=== PATIENT | female | born 1960 | race Caucasian/White ===

== ENCOUNTER 2016-08-13 20:03 | Observation (INO) | payer MEDICARE, BC ==
[2016-08-13 20:33] LABS: URINE MUCUS NONE SEEN (Up to 25%)
[2016-08-13 20:45] LABS: URINE APPEARANCE CLOUDY; URINE COLOR YELLOW; URINE LEUKOCYTE ESTERASE 75 WBC/uL (2+) (NEGATIVE); URINE NITRITE NEGATIVE (NEGATIVE); URINE SPECIFIC GRAVITY 1.015 (0.001-1.035)
[2016-08-13 20:46] LABS: URINE BILIRUBIN NEGATIVE (NEGATIVE); URINE BLOOD 50 Ery/uL (2+) (NEGATIVE); URINE GLUCOSE NORMAL (NEGATIVE); URINE KETONE NEGATIVE (NEGATIVE); URINE PROTEIN 30mg/dL (1+) (NEG - TRACE); URINE SQUAMOUS EPITHELIAL CELL 0-5/hpf (<= 15/hpf); URINE UROBILINOGEN NORMAL (NEG-1mg/dL)
[2016-08-13 20:57] LABS: BASOPHIL# 0.5 X 10^3uL (0.0-0.1); BASOPHILS 4.3 % (0.0-2.0); EOSINOPHILS 0.3 % (0.0-6.0); HEMATOCRIT 38.4 % (36.0-48.0); HEMOGLOBIN 12.9 g/dL (12.0-16.0); LYMPHOCYTES 11.4 % (20.0-40.0); LYMPHOCYTES# 1.4 X 10^3uL (0.8-3.8); MEAN CELL VOLUME 93.6 fL (80.0-100.0); MEAN CORPUS. HGB CONCENTRATION 33.7 g/dL (32.0-36.0); MEAN CORPUSCULAR HEMOGLOBIN 31.5 pg (29.0-35.0); MEAN PLATELET VOLUME 8.1 fL (7.4-10.4); MONOCYTES# 1.4 X 10^3uL (0.2-1.0); NEUTROPHILS# 9.2 X 10^3uL (2.6-6.7); PLATELET COUNT 324 X 10^3uL (130-440); RED CELL DISTRIBUTION WIDTH 12.8 % (11.5-14.5); WHITE BLOOD COUNT 12.6 X 10^3uL (3.9-10.7)
[2016-08-13] MEDS ORDERED: ONDANSETRON HCL 4 MG/2 ML VIAL ONE (20:57)
[2016-08-13] MEDS ORDERED: HYDROmorphone HCL 1 MG/ML SYR ONE ×2 (20:57→21:37)
[2016-08-13] MEDS ORDERED: LEVOFLOXACIN/D5W 100 ML IV ONE (20:58)
[2016-08-13] MEDS ORDERED: NORMAL SALINE 1,000 ML IV ONE (20:58)
[2016-08-13 21:07] LABS: BLOOD UREA NITROGEN 8 mg/dL (7-17); CALCIUM 9.1 mg/dL (8.4-10.2); CHLORIDE 98 mmol/L (98-107); CREATININE 0.7 mg/dL (0.5-1.0); EST GLOMERULAR FILTRATION RATE > 60 mL/min; GLUCOSE 96 mg/dL (70-100); POTASSIUM 4.2 mmol/L (3.5-5.1); SODIUM 136 mmol/L (137-145)
[2016-08-13] MEDS ORDERED: HOME MEDICATION LIST NEEDED 1 EA EACH MISC ONE (21:26)
[2016-08-13] MEDS ORDERED: NORMAL SALINE 1,000 ML IV SCH (22:00)
--- NOTE | 2016-08-13 22:04 | ER NURSING DOCUMENTATION ---
Nurse's Notes [facility] Name:Yudith Montano Age:56 yrs Sex:Female :1960 Arrival Date:08/13/2016 Time:20:03 Bed4 Private MD:Vick Harrington Diagnosis:Pyelonephritis;Abdominal Pain, Left Upper Quadrant Presentation: 08/13 20:11 Acuity: SHEILA 3 rh 20:11 Presenting complaint: Patient states: I started with a strange feeling in my lower left mk2 back on Thursday." Pt also complains of dysuria, frequency, LLQ abdominal pain with possible fevers at home. Pt afebrile in E.D with no medication on board. Transition of care: Home. Notified ED Physician of Dr. Obando notified. Care prior to arrival: None. 20:11 Method Of Arrival: Walk In [facility] Triage Assessment: 20:14 General: Appears in no apparent distress, Behavior is cooperative, pleasant. Pain: mk2 Complains of pain in left low back and RLQ Pain currently is 8 out of 10 on a pain scale. Pain began 2-3 days ago. Neuro: No deficits noted. Cardiovascular: Heart tones S1 S2. Respiratory: Breath sounds are clear bilaterally. GI: Reports lower abdominal pain. : Reports pain with urination urgency urinary frequency hematuria. Historical: - Allergies: PENICILLINS; - Home Meds: 1. remicade 2. Percocet Oral - PMHx: CHRONIC PAIN; Pneumonia; UTI; ARTHRITIS; OSTEOARTHRITIS; ankylosing spondylitis; H/O immunosuppressive therapy; - PSHx: BACK SURGERY; 3 BACK FUSION; Appendectomy; - Tetanus: < 10 years. - Ebola Screening: : Patient negative for fever greater than or equal to 101.5 degrees Fahrenheit, and additional compatible Ebola Virus Disease symptoms. - Immunization history: Flu Vaccine None. - Social history: Smoking status: Patient states former smoker of tobacco. Screenin:13 Infectious Disease Risk None. Abuse screen: Denies threats or abuse. Denies injuries rh from another. Nutritional screening: No deficits noted. Assessment: 20:16 See Triage Assessment done by same RN. mk2 22:00 GI: Bowel sounds present X 4 quads. Abd is soft. mk2 Vital Signs: 20:07 BP 150 / 95 (auto/); mk2 20:13 BP 150 / 95; Pulse 96; Resp 16; Temp 98.6; Pulse Ox 82% on R/A; Weight 53.52 kg; Height rh 5 ft. 5 in. (165.10 cm); Pain 8/10; 20:21 BP 155 / 95 (auto/); mk2 20:37 Pulse Ox 96% ; mk2 20:57 Pulse Ox 93% ; mk2 21:19 Pain 6/10; mk2 21:58 BP 141 / 64; Pulse 89; Resp 13; Pulse Ox 92% on 2 lpm NC; Pain 5/10; mk2 20:13 Body Mass Index 19.63 (53.52 kg, 165.10 cm) rh ED Course: 20:06 Patient arrived in ED. ma1 20:06 Vick Harrington MD is Private Physician. ma1 20:11 Melinda Espinoza is Primary Nurse. rh 20:11 Triage completed. rh 20:13 Valuables Remains with patient Patient has correct armband on for positive rh identification. Placed in gown. Bed in low position. Call light in reach. Side rails up X 1. 20:16 Urine collected. Clean catch specimen. mk2 20:27 Warm blanket given. mk2 20:39 Des Obando MD is Attending Physician. cd 20:43 Primary Nurse role handed off by Melinda Espinoza mk2 20:43 Brigida Finn, RN is Primary Nurse. mk2 20:59 Inserted peripheral IV: 20 gauge in left antecubital area and blood collected. Oxygen mk2 Oxygen administration via nasal cannula @ 2L/min. 21:33 Pt ambulates to bed with steady gait. Oxygen drops to 79 on RA. is aware. PT states mk2 she is typically has low oxygen in [place]. Pt is aao. 21:38 Cleo Cooper MD is Admitting Physician. cd Administered Medications: 20:44 Drug: NS 0.9% 1000 ml; Route: IV; Rate: bolus; Site: left antecubital; mk2 22:00 Follow up: IV Status: Completed infusion; IV Intake: 1000ml mk2 20:45 Drug: Dilaudid 0.5 mg; Route: IVP; Site: left antecubital; mk2 20:58 Follow up: Response: No change in condition mk2 20:45 Drug: levofloxacin 500 mg; Route: IVPB; Site: left antecubital; mk2 22:00 Follow up: IV Status: Completed infusion; IV Intake: 100ml mk2 20:45 Drug: Zofran 4 mg; Route: IVP; Infused Over: 2 mins; Site: left antecubital; mk2 21:19 Follow up: Response: Nausea is decreased mk2 20:58 Drug: Dilaudid 0.5 mg; Route: IVP; Site: left antecubital; mk2 21:19 Follow up: Response: Pain is decreased mk2 21:32 Drug: Dilaudid 1 mg; Route: IVP; Site: left antecubital; mk2 21:36 Follow up: Response: Pain is decreased mk2 Point of Care Testing: Urine Dip: 20:27 pH: 7.0; ; Specific [place]: 1.010; Ketones: Negative; Glucose: Negative; Protein: 1 mk2 mg/dL; Leukocytes: 2 Leuko/?L; Nitrite: Negative ; Blood: 3 Alek/?L; Bilirubin: Negative ; Urobilinogen: Normal Intake: 22:00 IV: 1000ml; Total: 1000ml. mk2 22:00 IV: 100ml; Total: 1100ml. mk2 Outcome: 21:40 Decision to Admit by Provider. cd 21:59 Admitted to Med/surg accompanied by nurse, via stretcher, with oxygen. mk2 21:59 Condition: stable 21:59 Report given to Kyrie Schimtz 21:59 Instructed on need to admit 22:03 Patient left the ED. 2 Signatures: Des Obando MD MD cd Kruger, Meg, RN RN david2 Melinda Espinoza Melissa orShabbir
--- NOTE | 2016-08-13 22:04 | ER PHYSICIAN DOCUMENTATION ---
Physician Documentation [facility] Name:Yudith Montano Age:56 yrs Sex:Female :1960 Arrival Date:08/13/2016 Time:20:03 Bed4 Private MD:Vick Harrington ED, Chris Disposition: 08/13/16 21:40 Admit ordered for Cleo Cooper. Preliminary diagnosis are Pyelonephritis, Abdominal Pain, Left Upper Quadrant. - Bed requested for Medical/Surgical. - Condition is Fair. - Problem is new. - Symptoms have improved. 23 HR OBS Yes HPI: 08/13 20:30 This 56 yrs old Female presents to ER via Walk In with complaints of cd Abdominal Pain. 20:30 The patient presents with abdominal pain in the left upper quadrant, and left flank and cd Left lower back. Onset: The symptoms/episode began/occurred gradually, 2 day(s) ago. The symptoms radiate to left back. Associated signs and symptoms: Pertinent positives: anorexia, dysuria, nausea, frequency with urination, Pertinent negatives: blood in stools, diarrhea, fever, vomiting blood. The symptoms are described as constant, steady. Severity of pain: At its worst the pain was severe a 8 / 10 in the emergency department the pain is unchanged. Historical: - Allergies: PENICILLINS; - Home Meds: 1. remicade 2. Percocet Oral - PMHx: CHRONIC PAIN; Pneumonia; UTI; ARTHRITIS; OSTEOARTHRITIS; ankylosing spondylitis; H/O immunosuppressive therapy; - PSHx: BACK SURGERY; 3 BACK FUSION; Appendectomy; - Tetanus: < 10 years. - Ebola Screening: : Patient negative for fever greater than or equal to 101.5 degrees Fahrenheit, and additional compatible Ebola Virus Disease symptoms. - Immunization history: Flu Vaccine None. - Social history: Smoking status: Patient states former smoker of tobacco. ROS: 21:07 ENT: Negative for injury, pain, epistaxis and discharge. cd Cardiovascular: Negative for chest pain, palpitations, edema and pleuritic pain. Respiratory: Negative for shortness of breath, dyspnea on exertion, cough, sputum production, wheezing, hemoptysis and pleuritic chest pain. MS/Extremity: Negative for injury, deformity, edema, calf tenderness, pain or coldness. Skin: Negative for injury, rash, itching and discoloration. 21:07 Neuro: Negative for headache, weakness, numbness, tingling, and seizure. cd 21:07 Constitutional: Positive for poor PO intake, Negative for chills, fever. 21:07 Abdomen/GI: Positive for abdominal pain, nausea, anorexia, Negative for vomiting, diarrhea, abdominal distension, hematemesis, black/tarry stool, rectal bleeding. 21:07 Back: Positive for pain at rest. 21:07 : Positive for urinary symptoms, flank pain, urinary frequency, burning with urination. 21:08 All other systems are negative. cd Exam: 21:08 ENT: Nares patent. No nasal discharge, no septal abnormalities noted. Tympanic cd membranes are normal and external auditory canals are clear. Oropharynx with no redness, swelling, or masses, exudates, or evidence of obstruction, uvula midline. Mucous membranes moist. Skin: Warm, dry with normal turgor. Normal color with no rashes, no lesions, and no evidence of cellulitis. 21:08 MS/ Extremity: Pulses equal, no cyanosis. Neurovascular intact. Full, normal range of motion. 21:08 Constitutional: The patient appears alert, awake, non-diaphoretic, non-toxic, well developed, well nourished, anxious, in obvious distress, moderately distressed. 21:08 Cardiovascular: Rate: normal, Rhythm: regular, Pulses: no pulse deficits are appreciated, Heart sounds: normal. 21:08 Respiratory: the patient does not display signs of respiratory distress, Respirations: normal, no acute changes, Breath sounds: are normal, clear throughout. 21:08 Abdomen/GI: Palpation: moderate abdominal tenderness, in the left upper quadrant, rebound tenderness, is not appreciated, voluntary guarding, is not appreciated, involuntary guarding, is not appreciated, no appreciated organomegaly, Indicators: Matute's sign is negative. 21:08 Back: CVA tenderness, that is moderate, is noted on the left. 21:08 : Bladder: distension, is not appreciated, tenderness, is not appreciated, Rectal exam: is not applicable. Vital Signs: 20:07 BP 150 / 95 (auto/); mk2 20:13 BP 150 / 95; Pulse 96; Resp 16; Temp 98.6; Pulse Ox 82% on R/A; Weight 53.52 kg; Height rh 5 ft. 5 in. (165.10 cm); Pain 8/10; 20:21 BP 155 / 95 (auto/); mk2 20:37 Pulse Ox 96% ; mk2 20:57 Pulse Ox 93% ; mk2 21:19 Pain 6/10; mk2 21:58 BP 141 / 64; Pulse 89; Resp 13; Pulse Ox 92% on 2 lpm NC; Pain 5/10; mk2 20:13 Body Mass Index 19.63 (53.52 kg, 165.10 cm) rh MDM: 20:30 Data interpreted: Pulse oximetry: on room air is 85 %. Interpretation: hypoxia. Plan: cd O2 by [place] applied. 20:39 Patient medically screened. cd 21:13 Differential diagnosis: diverticulitis, Pyelonephritis, urinary tract infection. 21:15 Data reviewed: vital signs, nurses notes, lab test result(s), CBC, electrolytes, cd urinalysis, and as a result, I will admit patient, administer antibiotics Levaquin, administer IV fluids, NS bolus. 21:30 Physician consultation: Cleo Cooper MD was called at 21:25, was contacted at cd 21:25, regarding admission, to the floor, consult, patient's condition, and will see patient in inpatient room, tomorrow. 21:37 Counseling: I had a detailed discussion with the patient and/or guardian regarding: the cd historical points, exam findings, and any diagnostic results supporting the discharge/admit diagnosis, lab results, the need for further work-up and treatment in the hospital, risk of leaving the Emergency Department, without completed treatment. 21:37 Admission orders: after a detailed discussion of the patient's condition and case, the admit orders are written by me. 08/13 20:47 Order name: UA W/ MICRO -CULTURE IF IND; Complete Time: 21:13 EDMS 04 21:13 Interpretation: Normal Except: URINE APPEARANCE CLOUDY; URINE LEUKOCYTE ESTERASE 75 cd WBC/uL (2+); URINE RBC 5-10/hpf; URINE WBC >100/hpf; URINE BACTERIA 10-20 ORGANISMS/hpf; UTI. 08/13 21:07 Order name: CBC AUTO DIF, MDIF/RMOR IF IND; Complete Time: 21:13 EDMS 08/13 21:13 Interpretation: Normal Except: WHITE BLOOD COUNT 12.6; NEUTROPHILS 73.0; Elevated WBC. 08/13 21:08 Order name: BASIC METABOLIC PANEL; Complete Time: 21:13 EDMS 08/13 21:13 Interpretation: Normal. 08/13 20:14 Order name: Urine Dip; Complete Time: 20:26 rh Dispensed Medications: 20:44 Drug: NS 0.9% 1000 ml; Route: IV; Rate: bolus; Site: left antecubital; mk2 22:00 Follow up: IV Status: Completed infusion; IV Intake: 1000ml mk2 20:45 Drug: Dilaudid 0.5 mg; Route: IVP; Site: left antecubital; mk2 20:58 Follow up: Response: No change in condition mk2 20:45 Drug: levofloxacin 500 mg; Route: IVPB; Site: left antecubital; mk2 22:00 Follow up: IV Status: Completed infusion; IV Intake: 100ml mk2 20:45 Drug: Zofran 4 mg; Route: IVP; Infused Over: 2 mins; Site: left antecubital; mk2 21:19 Follow up: Response: Nausea is decreased mk2 20:58 Drug: Dilaudid 0.5 mg; Route: IVP; Site: left antecubital; mk2 21:19 Follow up: Response: Pain is decreased mk2 21:32 Drug: Dilaudid 1 mg; Route: IVP; Site: left antecubital; mk2 21:36 Follow up: Response: Pain is decreased mk2 Point of Care Testing: Urine Dip: 20:27 pH: 7.0; ; Specific [place]: 1.010; Ketones: Negative; Glucose: Negative; Protein: 1 mk2 mg/dL; Leukocytes: 2 Leuko/?L; Nitrite: Negative ; Blood: 3 Alek/?L; Bilirubin: Negative ; Urobilinogen: Normal Signatures: Des Obando MD MD cd Kruger, Meg, RN RN [facility] Melinda Espinoza
[2016-08-13] MEDS: HYDROmorphone HCL 1 MG/ML SYR IV PRN (22:53)
[2016-08-13] MEDS: KETOROLAC TROMETHAMINE 30 MG/ML VIAL IV PRN (22:58)
[2016-08-14] MEDS: HYDROmorphone HCL 1 MG/ML SYR IV PRN ×4 (03:06→14:25)
[2016-08-14] MEDS: KETOROLAC TROMETHAMINE 30 MG/ML VIAL IV PRN ×3 (03:07→14:25)
[2016-08-14] MEDS ORDERED: O2 HUMIDIFIER 650 ML BOTTLE INHALATION ONE (03:35)
[2016-08-14 05:53] LABS: BASOPHILS 0.4 % (0.0-2.0); EOSINOPHILS 0.9 % (0.0-6.0); EOSINOPHILS# 0.1 X 10^3uL (0.0-0.4); HEMATOCRIT 30.4 % (36.0-48.0); HEMOGLOBIN 10.2 g/dL (12.0-16.0); LYMPHOCYTES 16.7 % (20.0-40.0); LYMPHOCYTES# 1.4 X 10^3uL (0.8-3.8); MEAN CELL VOLUME 93.7 fL (80.0-100.0); MEAN CORPUS. HGB CONCENTRATION 33.7 g/dL (32.0-36.0); MEAN CORPUSCULAR HEMOGLOBIN 31.6 pg (29.0-35.0); MONOCYTES 10.9 % (2.0-10.0); MONOCYTES# 0.9 X 10^3uL (0.2-1.0); NEUTROPHILS 71.1 % (54.0-75.0); NEUTROPHILS# 6.1 X 10^3uL (2.6-6.7); PLATELET COUNT 254 X 10^3uL (130-440); RED BLOOD COUNT 3.24 X 10^6uL (4.20-6.10); RED CELL DISTRIBUTION WIDTH 12.1 % (11.5-14.5); WHITE BLOOD COUNT 8.5 X 10^3uL (3.9-10.7)
[2016-08-14 06:07] LABS: BLOOD UREA NITROGEN 6 mg/dL (7-17); CALCIUM 7.9 mg/dL (8.4-10.2); CHLORIDE 102 mmol/L (98-107); CREATININE 0.6 mg/dL (0.5-1.0); EST GLOMERULAR FILTRATION RATE > 60 mL/min; GLUCOSE 90 mg/dL (70-100); POTASSIUM 3.7 mmol/L (3.5-5.1); SODIUM 135 mmol/L (137-145)
[2016-08-14 11:41] VITALS: BP 113/74; PULSE 63; RESP 16; TEMP 98; O2SAT 92
--- NOTE | 2016-08-14 16:33 | HISTORY & PHYSICAL ---
DATE OF ADMISSION: 08/13/16 DATE OF DISCHARGE: 08/14/16 DIAGNOSES 1. Left pyelonephritis. 2. Acute gastroenteritis. 3. Ankylosing spondylitis with associated chronic pain syndrome. HISTORY OF PRESENT ILLNESS: This is a 56-year-old female with ankylosing spondylitis, who was [place] for 3 weeks and [facility] for 5 weeks. She just returns to [place] and was to see her pain specialist Dr. Fisher for Remicade infusion and refill of pain medications. However, she presented to the ER with a 2-day history of left flank pain and left lower quadrant abdominal pain with associated dysuria, urinary frequency and urinary hesitancy. No urgency. In addition, this morning she developed some watery nonfoul, nonbloody diarrhea times 2 with some associated nausea. No fever, chills, vomiting, constipation, melena, hematochezia or vaginal discharge. She is having some left lower quadrant abdominal pain although not as severe today as yesterday. At this time she was able to keep p.o. fluids and solids down and she is urinating better compared to yesterday. ALLERGIES: Penicillin. MEDICATIONS Remicade infusion q.6 weeks. Percocet 10/325 mg one tablet p.o. q.i.d. PAST MEDICAL HISTORY 1. Ankylosing spondylitis. 2. Osteoarthritis. 3. Psoriatic arthritis. 4. Chronic pain syndrome post 5 lumbar back surgeries. 5. Umbilical hernia repair in 2010. 6. Appendectomy. SOCIAL HISTORY: one child. Disabled. Quit smoking in 2007. Drinks socially. FAMILY HISTORY: Father with diabetes, hypertension and cancer. REVIEW OF SYSTEMS: No lung, kidney, liver, diabetes, thyroid, seizures, peptic ulcer disease, hyperlipidemia, skin, allergy or bleeding disorders. PREVENTATIVE HEALTH: Pneumovax in 2013. Declines flu shot. PHYSICAL EXAMINATION GENERAL: Well-developed, well-nourished female, no acute distress, alert and oriented times 3. NECK: No thyromegaly, no carotid bruits. Supple. CHEST: Clear. No rales, rhonchi or wheezes. Good breath sounds and symmetry throughout. COR: RRR without murmurs, gallops, rubs or clicks. No jugular venous distention. No ectopy. ABDOMEN: Marked left lower quadrant abdominal tenderness on deep palpation with guarding. No rebound tenderness. No hepatosplenomegaly or masses. Bowel sounds present. Left flank pain on percussion. LOWER EXTREMITIES: No edema, peripheral pulses present. LABORATORY STUDIES: WBC 12.6 with 73% neutrophils, 11% lymphocytes, 4% basophils, H&H 12.__/38.4, platelets 324,000. Sodium 136, potassium 4.2, chloride 98, CO2 27, BUN 8, creatinine 0.7, glucose 96, calcium 9.1. Urinalysis showed specific gravity 1.015, cloudy, 1+ protein, 2+ blood, 3+ leukocyte esterase, otherwise negative dipstick. Micro showed 5-10 RBCs, greater than 100,000 WBCs, 10-20 bacteria per high power field. Urine culture is growing gram-negative bacillus with sensitivities pending at this time. HOSPITAL COURSE: The patient was admitted with a left pyelonephritis and this morning developed some symptoms consistent with acute gastroenteritis, most likely viral. The patient was hydrated with intravenous fluids and was started on Levaquin IV. In addition, she required Toradol and Dilaudid for pain control. At this time the patients symptoms have improved. She is able to keep p.o. fluids and food down and is ready for discharge. DISCHARGE INSTRUCTIONS: The patient may participate in activities as able. She is on a regular diet. She is encouraged to have adequate p.o. fluid intake. She will follow up with Dr. Harrington in the next several days if symptoms progress or worsen. She will follow up with Dr. Fisher next week. DISCHARGE MEDICATIONS Cipro 500 mg p.o. b.i.d. #14. Nystatin suspension 5 mL p.o. q.i.d. p.r.n. swish and swallow prophylactic. Probiotic 1 tablet p.o. q.day. 1 tablet p.o. q.day. Percocet 10/325 mg one tablet p.o. q.i.d. #45 tabs with further refills per Dr. Fisher. Remicade 300 mg IV q.month. Turmeric 1 tablet 500 mg p.o. q.day. Copy to Dr. Fisher and Dr. Nunez, [place] Targeting Acquisition Officer. [facility]
[2016-08-14] MEDS ORDERED: LEVOFLOXACIN/D5W 500 MG in DEXTROSE 5% PREMIX 100 ML 1 BAG IV SCH (22:00)
== END 2016-08-14 12:08 | disposition home or self-care (01) ==
LOC: ER 20:03 → IN 22:04
PROVIDERS: ADMIT Internal Medicine; ATTEND Family Medicine
DX: N10 Acute pyelonephritis (principal); A08.4 Viral intestinal infection, unspecified; E86.0 Dehydration; M45.0 Ankylosing spondylitis of multiple sites in spine; G89.29 Other chronic pain; M15.9 Polyosteoarthritis, unspecified; Z79.899 Other long term (current) drug therapy
CPT/HCPCS: 36415; 80048; 81001; 85025; 87040; 87077; 87086; 87186; 96365; 96374; 96375; 96376; 99235; 99285; E0555; G0378; J1170; J1885; J1956; J2405; J7030